=== PATIENT | male | born 1995 | race Asian ===

== ENCOUNTER 2019-07-09 15:33 | Inpatient (IN) ==
[2019-07-09] MEDS ORDERED: SODIUM CHLORIDE 0.9% 1000ML 1,000 ML IV ONE ×2 (15:42→17:11)
[2019-07-09] MEDS ORDERED: MoRPHine SULFATE 4 MG/ML 1 ML CARP\\VIAL IV STA (15:42)
[2019-07-09] MEDS ORDERED: ONDANSETRON INJ 2 MG/ML 2 ML VIAL IV STA (15:42)
[2019-07-09] MEDS ORDERED: KETOROLAC TROMETHAMINE 15 MG/ML VIAL IV STA (15:42)
--- NOTE | 2019-07-09 15:49 | Emergency Department Note ---
ED Provider Note CHIEF COMPLAINT: Left flank pain HISTORY OF PRESENT ILLNESS: The patient is a 24 year old male who presents to the ER because of severe, unrelenting left flank pain. The patient also notes the following associated symptoms: Nausea and vomiting. The symptoms started 2 to 3 hours ago and are severe and unrelenting. The patient has tried the following for relief : No medications administered at home The patient is a 24-year-old male presents to the ED with complaints of severe 9/10 left flank pain. The pain does not radiate. The patient has had associated nausea and vomiting. There has been no fever, no cough or congestion, no shortness of breath. The patient has not suffered any trauma. The patient states that he has had kidney stones before and believes this is a kidney stone. He has not noticed any difficulty with his urine. He felt fine earlier in the day before his symptoms began. He last passed a stone about a year ago. He states he is never had to have urologic intervention. REVIEW OF SYSTEMS: See HPI for pertinent positives and negatives. A total of ten systems were reviewed and were otherwise negative. PMHx/PSHx: See Below SOCIAL HISTORY: See Below. PHYSICAL EXAM: GENERAL: Patient is in moderate distress from pain. HEENT: No acute trauma, normocephalic atraumatic, mucous membranes moist, no nasal congestion, no scleral icterus. NECK: No stridor, no adenopathy, no meningismus, trachea is midline. LUNGS: Clear to auscultation bilaterally, no wheeze, no rhonchi, breath sounds equal. HEART: Without murmurs gallops or rubs, regular rate and rhythm. Back: The patient has left flank discomfort to percussion. ABDOMEN: Soft, nontender, bowel sounds positive, no hernias, no peritonitis. EXTREMITIES: No cyanosis or edema, full range of motion of all the joints without pain or difficulty, no signs for acute trauma. NEUROLOGIC: Oriented x 3, no acute motor or sensory deficits, no focal weakness. SKIN: No rash, no jaundice, mild diaphoresis. Seems somewhat pale. EMERGENCY DEPARTMENT COURSE: Patient was seen and examined, medications for symptoms were ordered, imaging and lab testing was ordered. The patient was reassessed multiple times, he continued to complain of left flank pain. Patient symptoms were not recently controlled, hospitalization was felt warranted. The on-call hospitalist was consulted. MEDICAL DECISION MAKING: The patient presents with left flank pain. He carries a history of renal colic. There is no leukocytosis or concerning anemia. No significant electrolyte abno rmality or kidney failure. CT of the abdomen pelvis shows a 4 mm left proximal ureteral stone. No evidence for bowel obstruction, no acute surgical process by CT scan. The patient was quite uncomfortable. He was sweaty, he was pale, he was describing significant pain. The patient received IV saline for hydration. He was given IV morphine, IV Zofran, IV Toradol. He continued to have pain. He was given IV Dilaudid, multiple doses of Dilaudid were administered. He was given IV Tylenol. The patient has not been able to provide a urine sample as of yet. Given the difficulty controlling his pain, given the multiple medications used to make him more comfortable, I do think hospitalization is warranted. I spoke with case management, I talked to the patient about all his findings, the on-call hospitalist has been consulted. Impression & Plan Acute left flank pain, Vomiting, Renal colic Past Med/Surg History Medical History (Updated 07/09/19 @ 19:13 by Ramiro Archer MD) Diabetes mellitus Nephrolithiasis (Chronic) Social History Feels Safe at Home: Yes Smoking Status: Never smoker Results & Data Vital Signs Vital Signs - 24 hr 07/09/19 15:35 07/09/19 16:00 07/09/19 16:17 Temperature 36.7 C Temperature Source Oral Pulse Rate 88 91 H Pulse Rate from SpO2 Sensor 91 H Respiratory Rate 16 18 Respiratory Effort / Characteristics Non-Labored Respiratory Depth Normal Blood Pressure 117/77 127/86 Blood Pressure Mean 90 93 Pulse Oximetry 97 100 Oxygen Delivery Method Room Air Sepsis Recent Fever Within 48 Hours No Sepsis New/Unexplained Change in Mental Status No Sepsis Action Taken by Nursing No Action Required 07/09/19 16:20 07/09/19 16:27 07/09/19 16:28 Temperature Temperature Source Pulse Rate 94 H 88 84 Pulse Rate from SpO2 Sensor 93 H 88 87 Respiratory Rate 17 19 14 Respiratory Effort / Characteristics Respiratory Depth Blood Pressure 128/84 Blood Pressure Mean 96 Pulse Oximetry 100 100 100 Oxygen Delivery Method Sepsis Recent Fever Within 48 Hours Sepsis New/Unexplained Change in Mental Status Sepsis Action Taken by Nursing 07/09/19 16:30 07/09/19 16:31 07/09/19 16:40 Temperature Temperature Source Pulse Rate 89 89 91 H Pulse Rate from SpO2 Sensor 91 H 91 H 91 H Respiratory Rate 17 14 16 Respiratory Effort / Characteristics Respiratory Depth Blood Pressure 130/86 Blood Pressure Mean 99 Pulse Oximetry 100 100 99 Oxygen Delivery Method Sepsis Recent Fever Within 48 Hours Sepsis New/Unexplained Change in Mental Status Sepsis Action Taken by Nursing 07/09/19 16:50 07/09/19 17:00 07/09/19 17:01 Temperature Temperature Source Pulse Rate 93 H 100 H 91 H Pulse Rate from SpO2 Sensor 93 H 99 H 92 H Respiratory Rate 12 16 13 Respiratory Effort / Characteristics Respiratory Depth Blood Pressure 132/83 Blood Pressure Mean 91 Pulse Oximetry 99 99 100 Oxygen Delivery Method Sepsis Recent Fever Within 48 Hours Sepsis New/Unexplained Change in Mental Status Sepsis Action Taken by Nursing 07/09/19 17:10 07/09/19 17:20 07/09/19 17:30 Temperature Temperature Source Pulse Rate 92 H 96 H 99 H Pulse Rate from SpO2 Sensor 93 H 97 H 99 H Respiratory Rate 16 16 15 Respiratory Effort / Characteristics Respiratory Depth Blood Pressure 140/85 Blood Pressure Mean 103 Pulse Oximetry 99 100 100 Oxygen Delivery Method Sepsis Recent Fever Within 48 Hours Sepsis New/Unexplained Change in Mental Status Sepsis Action Taken by Nursing 07/09/19 17:31 07/09/19 17:40 07/09/19 17:50 Temperature Temperature Source Pulse Rate 100 H 97 H 106 H Pulse Rate from SpO2 Sensor 99 H 99 H 105 H Respiratory Rate 21 14 20 Respiratory Effort / Characteristics Respiratory Depth Blood Pressure Blood Pressure Mean Pulse Oximetry 100 100 98 Oxygen Delivery Method Sepsis Recent Fever Within 48 Hours Sepsis New/Unexplained Change in Mental Status Sepsis Action Taken by Nursing 07/09/19 18:00 07/09/19 18:01 07/09/19 18:10 Temperature Temperature Source Pulse Rate 97 H 97 H 95 H Pulse Rate from SpO2 Sensor 96 H 97 H 98 H Respiratory Rate 13 13 12 Respiratory Effort / Characteristics Respiratory Depth Blood Pressure 126/82 Blood Pressure Mean 90 Pulse Oximetry 97 96 97 Oxygen Delivery Method Sepsis Recent Fever Within 48 Hours Sepsis New/Unexplained Change in Mental Status Sepsis Action Taken by Nursing 07/09/19 18:20 07/09/19 18:30 07/09/19 18:31 Temperature Temperature Source Pulse Rate 94 H 104 H 104 H Pulse Rate from SpO2 Sensor 93 H 105 H 103 H Respiratory Rate 16 14 15 Respiratory Effort / Characteristics Respiratory Depth Blood Pressure 142/81 H Blood Pressure Mean 97 Pulse Oximetry 94 97 97 Oxygen Delivery Method Sepsis Recent Fever Within 48 Hours Sepsis New/Unexplained Change in Mental Status Sepsis Action Taken by Nursing 07/09/19 18:40 Temperature Temperature Source Pulse Rate 106 H Pulse Rate from SpO2 Sensor 105 H Respiratory Rate 17 Respiratory Effort / Characteristics Respiratory Depth Blood Pressure Blood Pressure Mean Pulse Oximetry 97 Oxygen Delivery Method Sepsis Recent Fever Within 48 Hours Sepsis New/Unexplained Change in Mental Status Sepsis Action Taken by [facility] Medications Current Medication List: was personally reviewed by me Laboratory Data Attestation: I reviewed the patient's lab results. Result diagrams: 07/09/19 15:42 07/09/19 15:42 Lab Results 07/09/19 07/09/19 Range/Units 15:42 15:42 WBC 7.63 (4.8-10.8) K/uL RBC 4.86 (4.7-6.1) M/uL Hgb 14.9 (14.0-18.0) g/dL Hct 43.7 (42-52) % MCV 89.9 (80-100) fL MCH 30.7 (25-34) pg MCHC 34.1 (32-36) g/dL RDW Std Deviation 40.9 (36.4-46.3) fL RDW Coeff of Anam 12.5 (11.5-14.5) % Plt Count 304 (130-400) K/uL MPV 10.8 H (7.4-10.4) fL Sodium 142 (136-145) mmol/L Potassium 3.6 (3.5-5.1) mmol/L Chloride 110 H (98-107) mmol/L Carbon Dioxide 25 (21-32) mmol/L Anion Gap 7.0 (3-11) BUN 14 (7-18) mg/dl Creatinine 1.06 (0.6-1.4) mg/dl Est Cr Clr Drug Dosing 104.0 ml/min Est GFR ( Amer) 113.3 Est GFR (Non-Af Amer) 97.8 BUN/Creatinine Ratio 13.2 (10-20) Glucose 151 H (70-99) mg/dl Calcium 8.8 (8.5-10.1) mg/dl Administered Medications Discontinued Medications Acetaminophen (Tylenol) 1,000 mg PO NOW STA Stop: 07/09/19 17:40 Last Admin: 07/09/19 17:44 Dose: 1,000 mg Documented by: [id number] Hydromorphone HCl (Dilaudid) 1 mg IV NOW STA Stop: 07/09/19 16:19 Last Admin: 07/09/19 16:26 Dose: 1 mg Documented by: [id number] Hydromorphone HCl (Dilaudid) 0.5 mg IV NOW STA Stop: 07/09/19 17:40 Last Admin: 07/09/19 17:43 Dose: 0.5 mg Documented by: [id number] Hydromorphone HCl (Dilaudid) 0.5 mg IV NOW STA Stop: 07/09/19 18:26 Last Admin: 07/09/19 18:28 Dose: 0.5 mg Documented by: [id number] Sodium Chloride (Nss 1000ml) 1,000 mls @ 999 mls/hr IV .Q1H1M ONE Stop: 07/09/19 16:42 Last Infusion: 07/09/19 17:03 Dose: 0 mls/hr Documented by: [id number] Admin: 07/09/19 15:55 Dose: 999 mls/hr Documented by: [id number] Sodium Chloride (Nss 1000ml) 1,000 mls @ 999 mls/hr IV .Q1H1M ONE Stop: 07/09/19 18:11 Last Infusion: 07/09/19 18:09 Dose: 0 mls/hr Documented by: [id number] Admin: 07/09/19 17:30 Dose: 999 mls/hr Documented by: [id number] Ketorolac Tromethamine (Toradol) 15 mg IV ONE STA Stop: 07/09/19 15:43 Last Admin: 07/09/19 15:54 Dose: 15 mg Documented by: [id number] Morphine Sulfate (Morphine Sulfate) 4 mg IV NOW STA Stop: 07/09/19 15:43 Last Admin: 07/09/19 15:55 Dose: 4 mg Documented by: [id number] Ondansetron HCl (Zofran) 4 mg IV NOW STA Stop: 07/09/19 15:43 Last Admin: 07/09/19 15:54 Dose: 4 mg Documented by: [id number] Imaging Data Radiologist's Impression: Abdominal and pelvis CT: IMPRESSION: 1. 4 mm obstructing calculus left ureteropelvic junction. 2. Mild fullness left renal collecting system. 3. Multiple nonobstructing bilateral renal cortical calcifications. Blood Pressure Blood Pressure Findings: Elevated blood pressure Blood Pressure Disposition: Referred to patients primary care provider Discharge Plan Visit Data Chief Complaint: Kidney Stone Stated Complaint: kidney stone ED Provider: Ramiro Archer Discharge Problem: Acute left flank pain, Vomiting, Renal colic Patient Disposition: Being Evaluated by Hospitalist Condition: Good Forms Stand Alone Forms: [employer] Prescriptions Prescriptions: No Action insulin lispro [Humalog U-100 Insulin] 100 unit/mL solution See Rx Instructions SQ DAILY Qty: 90 RF: 0 (DME) lancets [Microlet Lancet] Misc See Rx Instructions .ROUTE .MEDSUPPLY Qty: 300 RF: 3 ergocalciferol (vitamin D2) 1,250 mcg (50,000 unit) capsule 1,250 mcg PO WEEKLY Qty: 90 RF: 3 (DME) Contour Next Test Strips Strip See Rx Instructions .ROUTE .MEDSUPPLY Qty: 300 RF: 3 Referrals Referrals: [facility] [Primary Care Provider] - Discharge Problem: Vomiting Qualifiers: Vomiting type: unspecified Vomiting Intractability: non-intractable Nausea presence: with nausea Qualified Code(s): R11.2 - Nausea with vomiting, unspecified
[2019-07-09 16:14] LABS: Hematocrit (blood only) 43.7 % (42-52); Hemoglobin 14.9 g/dL (14.0-18.0); Mean Corpuscular Hemoglobin 30.7 pg (25-34); Mean Corpuscular Hgb Conc 34.1 g/dL (32-36); Mean Corpuscular Volume 89.9 fL (80-100); Mean Platelet Volume 10.8 fL (7.4-10.4); Platelet Count 304 K/uL (130-400); RDW Coefficient of Variation 12.5 % (11.5-14.5); RDW Standard Deviation 40.9 fL (36.4-46.3); Red Blood Count 4.86 M/uL (4.7-6.1); White Blood Count 7.63 K/uL (4.8-10.8)
[2019-07-09] MEDS ORDERED: HYDROmorphone INJ 1 MG/ML SYRINGE IV STA (16:18)
[2019-07-09 16:22] LABS: BUN Creatinine Ratio 13.2 (10-20); Calcium 8.8 mg/dl (8.5-10.1); Est GFR (African American) 113.3; Est GFR (Non-African American) 97.8; Potassium 3.6 mmol/L (3.5-5.1)
--- NOTE | 2019-07-09 16:38 | CT Scan Report ---
CT abd pelvis wo con CT DOSE: 625.64 mGy.cm HISTORY: Flank pain left flank TECHNIQUE: Multiaxial CT images of the abdomen and pelvis were performed without contrast. A dose lo wering technique was utilized adhering to the principles of ALARA. COMPARISON STUDY: None. FINDINGS: Lung bases are clear. Liver spleen and pancreas are unremarkable. Bilateral nonobstructing renal calcifications. 4 mm calcification left ureteropelvic junction. Mild fullness left renal collecting system. The more distal aspects of the ureters are unremarkable. The bowel pattern is nonobstructing. The iraj endix is normal. The bladder is midline. IMPRESSION: 1. 4 mm obstructing calculus left ureteropelvic junction. 2. Mild fullness left renal collecting system. 3. Multiple nonobstructing bilateral renal cortical calcifications. ACT 112: Negative or not required by law. The above report was generated using voice recognition software. It may contain grammatical, syntax or spelling errors. Electronically signed by: Yusuf Alvarado M.D. 07/09/2019 4:36 PM
[2019-07-09] MEDS ORDERED: HYDROmorphone INJ 0.5 MG/0.5 ML SYR IV STA ×2 (17:39→18:25)
[2019-07-09] MEDS ORDERED: ACETAMINOPHEN 500 MG TAB PO STA (17:39)
--- NOTE | 2019-07-09 18:59 | History & Physical Report ---
Date of Service July 09, 2019 Assessment & Plan (1) Nephrolithiasis: Patient with a 4 mm stone high in the left urine collecting system. This seems to be similar appearance to 02/2019 appearance patient outpatient urology notes. I did explain to the patient that I suspect he will require more definitive treatment of his obstructive nephrolithiasis while he remains in the hospital. He seems to be somewhat hesitant but I did tell him we will defer to urology in this event. Now, can continue pain control with Dilaudid which seems to have been effective. I will also order Toradol for with severe pain. Patient should strain all his urine. Will ask urology to evaluate for further r ecommendations. I do not think the patient has an acute urinary tract infection antibiotics will be held. (2) Diabetes type 1, uncontrolled: Patient has an insulin pump, I will let him continue this and follow sugars before meals and nightly. Diet may be affected by nausea vomiting. We will start a clear liquid diet and advance as tolerated. We will add Zofran for symptomatic relief. History of Present Illness Primary Care Provider: [facility] This is a 24-year-old male with past medical history of type 1 diabetes and previous nephrolithiasis that presents today complaining of left flank pain. History is limited secondary to language but the patient's [place]an is passable and is able to give a decent history. Patient tells me that he was previously following with urology secondary to bilateral nephrolithiasis. Patient was previously passed the stone on the right and was following with consideration to lithotripsy for stone left. I do see from an 02/2019 office note that the stone had grown somewhat larger to 4 mm and lithotripsy was recommended at that time. The patient at that time refused and wanted to continue to monitor to see if it would pass spontaneously. Patient tells me that this morning the pain became much worse in his left side. He had significant nausea and vomiting from this as well. He did not have any fevers or chills. Work-up showed a 4 mm obstructing calculus with mild hydronephrosis in the left UPJ. Patient is to be admitted for pain control along with a more definitive treatment of the renal stone. Allergies Allergy/AdvReac Type Severity Reaction Status Date / Time No Known Allergies Allergy Verified 07/09/19 16:34 Home Medications Home Medications Medication Instructions Recorded Confirmed Type insulin lispro 100 unit/mL See Rx Instructions SQ DAILY #90 ml 03/21/19 07/09/19 Rx subcutaneous solution Contour Next Test Strips #300 ea NS 05/30/19 05/30/19 Rx Microlet Lancet #300 ea NS 05/30/19 05/30/19 Rx ergocalciferol (vitamin D2) 1,250 1,250 mcg PO WEEKLY #90 cap 05/30/19 07/09/19 Rx mcg (50,000 unit) capsule Past Med/Surg History Medical History (Updated 07/09/19 @ 19:13 by Ramiro Archer MD) Diabetes mellitus Nephrolithiasis (Chronic) Social History Preferred Language: [place]an Communication Ability: Effective Composition Floor Layer Required: No Beliefs That Will Affect Care: None Current Living Situation: Other Current Living Situation Comment: roommate and girlfriend Feels Safe at Home: Yes Safety Concerns: Feels Safe At This Time Smoking Status: Never smoker Hx Alcohol Use: Yes Alcohol type: beer, wine and hard liquor Hx Substance Use: No Review of Systems Constitutional: no fever, no chills, no weakness, no weight loss and no weight gain Eyes: as per Subjective / HPI Respiratory: no cough, no chest congestion, no dyspnea and no dyspnea on exertion Cardiovascular: no chest pain, no orthopnea, no palpitations, no lightheadedness and no edema Gastrointestinal: + nausea and + vomiting; no abdominal pain, no coffee ground emesis, no hematemesis, no constipation and no diarrhea/loose stools Genitourinary: + flank pain; no dysuria and no difficulty urinating Musculoskeletal: no back pain, no neck pain, no joint pain, no stiffness and no myalgia Integumentary: no rash Neurologic: no gait abnormality, no unsteadiness, no falls and no generalized weakness Physical Exam Constitutional: cooperative; no acute distress Neck: trachea midline, no thyromegaly Respiratory: normal respiratory effort Auscultation: lungs clear to auscultation bilaterally; no crackles, no rales, no rhonchi and no wheezes Cardiovascular: Rate/Rhythm: regular rate and regular rhythm Heart Sounds: normal S1 and normal S2 Gastrointestinal (Abdomen): Inspection/Auscultation: abdomen normal to inspection Percussion/Palpation: abdomen soft; abdomen nontender, no guarding, abdomen not rigid and no hepatosplenomegaly Skin: no rashes, warm and dry Genitourinary: L flank pain with palpation Results & Data Vital Signs (Past 12 Hours) Vital Signs Temp Pulse Resp BP Pulse Ox 07/09/19 18:40 106 H 17 97 07/09/19 18:31 104 H 15 97 07/09/19 18:30 104 H 14 142/81 H 97 07/09/19 18:20 94 H 16 94 07/09/19 18:10 95 H 12 97 07/09/19 18:01 97 H 13 96 07/09/19 18:00 97 H 13 126/82 97 07/09/19 17:50 106 H 20 98 07/09/19 17:40 97 H 14 100 07/09/19 17:31 100 H 21 100 07/09/19 17:30 99 H 15 140/85 100 07/09/19 17:20 96 H 16 100 07/09/19 17:10 92 H 16 99 07/09/19 17:01 91 H 13 100 07/09/19 17:00 100 H 16 132/83 99 07/09/19 16:50 93 H 12 99 07/09/19 16:40 91 H 16 99 07/09/19 16:31 89 14 100 07/09/19 16:30 89 17 130/86 100 07/09/19 16:28 84 14 100 07/09/19 16:27 88 19 128/84 100 07/09/19 16:20 94 H 17 100 07/09/19 16:17 91 H 18 100 07/09/19 16:00 127/86 07/09/19 15:35 36.7 C 88 16 117/77 97 Laboratory Results WBC 7.6, hemoglobin 14.9, hematocrit of 43.7, platelets of 304. Sodium 142, potassium 3.6, carbon dioxide 25, chloride 110, creatinine is 1.06 with a BUN of 14, this appears to be his baseline. Glucose of 131. Calcium 8.8. Patient has diarrhea produced a urine sample, therefore there are no urinalysis results available at this time. Diagnostic Findings CT abd pelvis wo con CT DOSE: 625.64 mGy.cm HISTORY: Flank pain left flank TECHNIQUE: Multiaxial CT images of the abdomen and pelvis were performed without contrast. A dose lowering technique was utilized adhering to the principles of ALARA. COMPARISON STUDY: None. FINDINGS: Lung bases are clear. Liver spleen and pancreas are unremarkable. Bilateral nonobstructing renal calcifications. 4 mm calcification left ureteropelvic junction. Mild fullness left renal collecting system. The more distal aspects of the ureters are unremarkable. The bowel pattern is nonobstructing. The appendix is normal. The bladder is midline. IMPRESSION: 1. 4 mm obstructing calculus left ureteropelvic junction. 2. Mild fullness left renal collecting system. 3. Multiple nonobstructing bilateral renal cortical calcifications. PG Care Time/CCT Total # of Minutes Spent Total Time Spent with Patient: Total time spent is greater than 50% in coordination of care (as documented) at patient's floor/unit and/or counseling patient: Coding Level of Care Code 76394 Initial Inpt Care Lvl 3 Diagnoses Nephrolithiasis N20.0 Diabetes type 1, uncontrolled E10.65
[2019-07-09] MEDS ORDERED: KETOROLAC 30 MG/ML VIAL IV PRN (21:34)
[2019-07-09] MEDS ORDERED: ONDANSETRON INJ 2 MG/ML 2 ML VIAL IV PRN (21:34)
[2019-07-09] MEDS ORDERED: ZOLPIDEM TARTRATE 5 MG TAB PO PRN (21:34)
[2019-07-09] MEDS ORDERED: GLUCOSE 40% GEL 15 GM TUBE PO PRN (21:45)
[2019-07-09] MEDS ORDERED: DEXTROSE 50% 50 ML SYRINGE IV PRN (21:45)
[2019-07-09] MEDS ORDERED: INSULIN HUMAN LISPRO (humaLOG) 100 UNITS/ML VIAL SC PRN (21:45)
[2019-07-09] MEDS ORDERED: CARBOHYDRATES FOR HYPOGLYCEMIA PO PRN (21:45)
[2019-07-09] MEDS ORDERED: GLUCOSE 10 TABS/TUBE PO PRN (21:45)
[2019-07-09] MEDS ORDERED: GLUCAGON FOR INJ 1 MG VIAL SQ PRN (21:45)
[2019-07-09] MEDS ORDERED: INFLUENZA VIRUS QUAD VACCINE 0.5 ML SYR IM ONE (22:04)
[2019-07-09] MEDS ORDERED: INFLUENZA ADMINISTRATION CHARGE ONE (22:04)
[2019-07-09] MEDS: SODIUM CHLORIDE 0.9% 1000ML 1,000 ML IV SCH (22:53)
[2019-07-09] MEDS: HYDROmorphone INJ 0.5 MG/0.5 ML SYR IV PRN (22:53)
[2019-07-10] MEDS: HYDROmorphone INJ 0.5 MG/0.5 ML SYR IV PRN (05:10)
[2019-07-10 05:53] LABS: Basophils # (auto) 0.02 K/uL (0-0.2); Basophils % (auto) 0.2 %; Eosinophils # (auto) 0.02 K/uL (0-0.5); Eosinophils % (auto) 0.2 %; Hematocrit (blood only) 37.9 % (42-52); Hemoglobin 12.8 g/dL (14.0-18.0); Immature Granulocytes # (auto) 0.02 K/uL (0.00-0.02); Immature Granulocytes % (auto) 0.2 %; Lymphocytes # (auto) 1.59 K/uL (1.2-3.4); Lymphocytes % (auto) 13.3 %; Mean Corpuscular Hemoglobin 29.8 pg (25-34); Mean Corpuscular Hgb Conc 33.8 g/dL (32-36); Mean Corpuscular Volume 88.3 fL (80-100); Mean Platelet Volume 10.6 fL (7.4-10.4); Monocytes # (auto) 0.96 K/uL (0.11-0.59); Neutrophils # (auto) 9.32 K/uL (1.4-6.5); Neutrophils % (auto) 78.1 %; Platelet Count 238 K/uL (130-400); RDW Coefficient of Variation 12.5 % (11.5-14.5); RDW Standard Deviation 39.7 fL (36.4-46.3); Red Blood Count 4.29 M/uL (4.7-6.1); White Blood Count 11.93 K/uL (4.8-10.8)
[2019-07-10] MEDS: SODIUM CHLORIDE 0.9% 1000ML 1,000 ML IV SCH (06:21)
[2019-07-10 06:24] LABS: BUN Creatinine Ratio 12.6 (10-20); Calcium 8.3 mg/dl (8.5-10.1); Creatinine Clr Calc Pharmacy 122.4 ml/min; Est GFR (African American) 138.1; Est GFR (Non-African American) 119.1; Potassium 3.5 mmol/L (3.5-5.1)
--- NOTE | 2019-07-10 07:28 | XRay Report ---
XR KUB/Abdomen 1 view CLINICAL HISTORY: FU kidney stone COMPARISON STUDY: 03/01/2019, CT scan dated 07/09/2019 FINDINGS: There is no pathologic bowel dilatation. The renal shadows are largely obscured by overlyin g bowel gas and fecal material. There is faint visualization of a 4 mm calcification consistent with the recently described left UPJ calculus. IMPRESSION: Faint visualization of a 4 mm calcification consistent with the recently described left UPJ calculus. ACT 112: Negative or not required by law. Electronically signed by: Huang Lentz M.D. 07/10/2019 7:27 AM
[2019-07-10] MEDS ORDERED: ERGOCALCIFEROL 50,000 UNITS CAP PO SCH (09:00)
--- NOTE | 2019-07-10 12:22 | Urology Consultation ---
Date of Consultation July 10, 2019 Assessment & Plan (1) Acute left flank pain: Improved with hydration and monitoring. (2) Nephrolithiasis: Patient known patient of Dr. Mari. Has a history of stone disease with a previous right stone that has passed. The left stone has decreased in its pain. Discussed findings on KUB which shows a stone may have moved past the UPJ. Discussed different obstructive problems and concerns. Discussed possibi lity fevers chills or other issues. Discussed passage drainage. We will plan to continue to monitor the patient. He is motivated to go home today. That should be possible as long as he does not develop other major issues or concerns. We will plan to continue with maximum expulsion therapy. Patient call the office and set up possible intervention if stone does not appear to pass or if he develops sudden/acute problems. Patient's imaging was reviewed. His complicated medical and surgical history was reviewed. As well as his lab work and vitals. History of Present Illness Attending Physician: Jared Carcamo History of Present Illness New consultation for patient with stone, discomfort, obstruction, and ill feelings. Patient developed sudden onset of pain into flank going down and radiating into groin and back in waves comes and goes. Can be severe at times. Discussed and reviewed patient's family history for any history of stone disease. Also, discussed patient's medical surgery history especially related to any history of urinary issues or stone disease. Patient was admitted and is undergoing observation. Allergies Allergy/AdvReac Type Severity Reaction Status Date / Time No Known Allergies Allergy Verified 07/09/19 16:34 Home Medications Home Medications Medication Instructions Recorded Confirmed Type insulin lispro 100 unit/mL See Rx Instructions SQ DAILY #90 ml 03/21/19 07/09/19 Rx subcutaneous solution Contour Next Test Strips #300 ea NS 05/30/19 05/30/19 Rx Microlet Lancet #300 ea NS 05/30/19 05/30/19 Rx ergocalciferol (vitamin D2) 1,250 1,250 mcg PO WEEKLY #90 cap 05/30/19 07/09/19 Rx mcg (50,000 unit) capsule Patient History Medical History Diabetes mellitus Nephrolithiasis (Chronic) Social History Preferred Language: Azeri Communication Ability: Effective 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 Patient is well nourished and well kept. HEENT: Normocephalic Atraumatic. Inspection normal. Cranial Nerves 2-12 Grossly intact. Nares are clear. Neck is supple. Normal inspection of face. Normal inspection of neck. Neurologic: No deficits on inspection. Baseline for motor function and sensory. Psychologic: Normal affect. Respiratory: Nonlabored. No use of accessory muscles. No tachypnea or dyspnea. Cardiovascular: No tachycardia Skin: [place] and Dry. No rashes or visible lesions. Extremities: Moving without issues. No motor deficits on inspection Lymphatics: No edema Abdomen: Soft Non-distended. No acites. No rebound or guarding. Results & Data Vital Signs (Past 12 Hours) Vital Signs Temp Pulse Resp BP Pulse Ox 07/10/19 07:47 37.3 C 94 H 18 120/77 97 PG Care Time/CCT Total # of Minutes Spent Total Time Spent with Patient: Total time spent is greater than 50% in coordination of care (as documented) at patient's floor/unit and/or counseling patient: Coding Level of Care Code 14523 Inpt Consult Level 5 Diagnoses Acute left flank pain R10.9 Nephrolithiasis N20.0
[2019-07-10 13:29] LABS: Appearance Urine Clear (Clear); Bacteria Urine Automated Negative (Negative); Bilirubin Urine Negative (Negative); Blood Urine 3+ (Negative); Color Urine Yellow; Glucose Urine UA Negative (Negative); Ketones Urine 2+ (Negative); Leukocyte Esterase Urine Negative (Negative); Nitrite Urine Negative (Negative); Protein Urine Negative (Negative); Specific Gravity Urine 1.011 (1.000-1.030); Urobilinogen Urine Negative (Negative); pH Urine 6.5 (4.5-7.5)
[2019-07-10] MEDS ORDERED: TAMSULOSIN HCL 0.4 MG CAP PO STA (14:52)
--- NOTE | 2019-07-10 15:35 | Discharge Summary ---
Date of Service date of admission - July 09, 2019 date of discharge - July 10, 2019 Admission HPI Per Admitting Provider This is a 24-year-old male with past medical history of type 1 diabetes and previous nephrolithiasis that presents today complaining of left flank pain. History is limited secondary to language but the patient's Azeri is passable and is able to give a decent history. Patient tells me that he was previously following with urology secondary to bilateral nephrolithiasis. Patient was previously passed the stone on the right and was following with consideration to lithotripsy for stone left. I do see from an 02/2019 office note that the stone had grown somewhat larger to 4 mm and lithotripsy was recommended at that time. The patient at that time refused and wanted to continue to monitor to see if it would pass spontaneously. Patient tells me that this morning the pain became much worse in his left side. He had significant nausea and vomiting from this as well. He did not have any fevers or chills. Work-up showed a 4 mm obstructing calculus with mild hydronephrosis in the left UPJ. Patient is to be admitted for pain control along with a more definitive treatment of the renal stone. Principal Diagnosis left-sided kidney stone Discharge Exam Constitutional well developed and well nourished; no acute distress ENMT external ear and nose normal, oropharynx normal Respiratory normal respiratory effort, lungs clear to auscultation Cardiovascular Rate/Rhythm: regular rhythm and + tachycardic (borderline) Heart Sounds: normal S1 and normal S2; no murmur Extremities: no edema Gastrointestinal (Abdomen) normal bowel sounds, soft, nontender, no hepatosplenomegaly Psychiatric A+Ox3, euthymic affect Discharge Data Allergies Allergy/AdvReac Type Severity Reaction Status Date / Time No Known Allergies Allergy Verified 07/15/19 06:22 Consultations [facility] [place] Urology Ordered Studies CT abd pelvis wo con Stat - IMPRESSION: 1. 4 mm obstructing calculus left ureteropelvic junction. 2. Mild fullness left renal collecting system. 3. Multiple nonobstructing bilateral renal cortical calcifications. Hospital Course (1) Nephrolithiasis: Patient was admitted for IV fluids and pain control along with urology consultation for his left-sided kidney stone. Pain quickly resolved shortly after admission. U/a was not suggestive of UTI; urine cx was sent as precautionary measure, however. Given the small size of the stone Urology gave the patient the option of ongoing non-surgical management and trial of spontaneous passage. Patient opted for such. At discharge he will continue with copious oral hydration, flomax daily, and pain meds prn. Follow-up with [facility] [place] Urology advised within a week of discharge to check on passage of stone. (2) Diabetes type 1, uncontrolled: Patient was continued on his insulin pump while here. Glycemic control was excellent. He tolerated a regular diet before d/c home. Total Time Total Time Spent Total Time Spent (In Minutes): 25 Total Time Includes: Examination of the Patient, Discharge Planning, Medication Reconciliation and Communication With Other Providers Discharge Plan Discharge Items Patient Disposition: Home - Self-Care Reason For Visit: kidney stone on the left side, intractable pain Discharge Diagnosis: left-sided kidney stone, 4mm in size Condition on Discharge: Good Activity: As commented below Activity Comment: light activities for a few days as you pass your kidney stone Exercise/Sports: Wait until after follow-up appointment Driving/Machine Use: no driving if taking narcotic pain killer medication Non-emergency contact: Primary Care Provider and Urologist Call non-emergency contact if: you have any medication questions, your symptoms worsen, your pain is not controlled, your pain is worsening and you have a fever Follow-up/Referrals: Phil Roy, [Physician] - 07/13/19 9:40 am (see Dr Roy or one of his partners THIS WEEK ) [facility] [Primary Care Provider] - Diet: Carb Count or DM1 Addtl Attending Provider Instructions: You have a 4mm left-sided kidney stone. It is trying to pass down the left ureter to your bladder. Your urinalysis today, 07/10/2019, is not suspicious for urinary tract infection but a urine culture will be sent as a precautionary measure. You were seen by Dr Phil Roy, urology, who is partners with Dr Mari whom you have seen previously. At this time we recommend - 1. flomax (tamsulosin) 0.4mg once daily; start this TOMORROW, 07/11/2019. This is to help pass your kidney stone. 2. plenty of water and extra fluids over the next few days as you attempt to pass the stone. 3. ondansetron 4mg every 6 hours as needed for nausea or vomiting. 4. for pain -- * please try tylenol first - you can take 500-1000mg each time every 6-8 hours for pain; maximum of 3000mg in 24 hours * if tylenol does not help you can try motrin 600mg every 6 hours as needed for pain; take with food * as a last resort, you can try taking hydrocodone-acetaminophen -- 1/2 tab to 1 full tab every 6 hours as needed * if you have to take the hydrocodone note that it contains tylenol in it and thus stop taking [id number] tylenol * hydrocodone is a narcotic pain killer -- do NOT drive and do NOT drink alcohol while taking this medication as it can make you sleepy * hydrocodone may also cause constipation 5. continue your insulin pump as previous. Follow-- see Dr Jason Mari or Dr Phil Macedo - [facility] Urology - THIS WEEK Return to [facility] if -- * you have fever over 100.5 degrees * you have worsening back or abdominal pain despite taking the above medications * you have persistent vomiting despite taking nausea/vomiting medication * you have large amounts of blood in your urine * you have burning upon urination * you have high blood sugar levels or low blood sugar levels * any other concerns Pending Studies at Discharge: Yes Studies:: urine culture Stand-Alone Forms: My [facility] [email or web address], Smoking Cessation Medications and DC Order Prescriptions: New ondansetron 4 mg tablet,disintegrating 4 mg PO Q6H PRN (Reason: nausea and vomiting) Qty: 10 RF: 0 Continued insulin lispro [Humalog U-100 Insulin] 100 unit/mL solution See Rx Instructions SQ DAILY Qty: 90 RF: 0 (DME) lancets [Microlet Lancet] Misc See Rx Instructions .ROUTE .MEDSUPPLY Qty: 300 RF: 3 ergocalciferol (vitamin D2) 1,250 mcg (50,000 unit) capsule 1,250 mcg PO WEEKLY Qty: 90 RF: 3 (DME) Contour Next Test Strips Strip See Rx Instructions .ROUTE .MEDSUPPLY Qty: 300 RF: 3 No Action oxycodone-acetaminophen [Percocet] 5-325 mg tablet 1 tab PO Q8H PRN (Reason: pain) Qty: 7 RF: 0 tamsulosin [Flomax] 0.4 mg capsule 0.4 mg PO QAM RF: 0 Discharge Orders: Discharge Order (Routine); Ordered 07/10/19 Ordered By: Jared Dale/Other Patient Handouts: Kidney Stones, Acetaminophen Hydrocodone tablets or capsules Admission Data Admit Date/Time: 07/09/19 19:57 Attending Provider: Jared Carcamo Admit Provider: Didier Zeng Primary Care Provider: [facility] Other Providers: Didier Zeng ; Jason Mari Other Interventions: Discharge Summary Assessment (RN) Last Done: 07/10/19 15:16 DC Date/Time DO NOT enter until pt leaves facility: 07/10/19 15:48 Coding Level of Care Code D/C Day Management <30 mins Diagnoses Nephrolithiasis N20.0 Diabetes type 1, uncontrolled E10.65
== END 2019-07-10 15:48 | disposition home or self-care (01) | DRG 694 ==
LOC: ED 15:33 → SUATTDRO 19:57 → 3W 19:57